=== PATIENT | male | born 1995 | race African-American/Black ===

== ENCOUNTER 2017-10-28 16:44 | Emergency (ER) | payer BC ==
[2017-10-28 17:57] VITALS: BP 120/67
--- NOTE | 2017-10-28 18:07 | UC ---
UC General HPI - HPI Summary HPI Summary: pt is c/o 3 separate episodes of some nausea with vomiting in the past weeks. notes stomach feels sharp with pain during the vomiting. no diarrhea. no black or bloody BM's and no diarrhea. denies hx IBD. admits to belching. has tried Tums and Peptobismal with no relief. currently feels ok. denies travel hx, sick contacts and antibiotic use. also denies marijuanna / alcohol use. - History of Current Complaint Chief Complaint: UCGI Stated Complaint: VOMITING Time Seen by Provider: 10/28/17 17:59 Hx Obtained From: Patient Pain Intensity: 0 Aggravating: food but only when stomach is already feeling upset Alleviating: nothing Associated Signs & Symptoms: Positive: Nausea, Vomiting. Negative: Diarrhea, Fever - Allergy/Home Medications Allergies/Adverse Reactions: Allergies Allergy/AdvReac Type Severity Reaction Status Date / Time No Known Allergies Allergy Verified 10/28/17 17:57 PMH/Surg Hx/FS Hx/Imm Hx Previously Healthy: Yes - Surgical History Surgical History: None - Family History Known Family History: Positive: None - Social History Occupation: Student Lives: Dormitory/Roommates Alcohol Use: None Substance Use Type: None Smoking Status (MU): Never Smoked Tobacco - Immunization History Vaccination Up to Date: Yes Review of Systems Constitutional: Negative Skin: Negative Eyes: Negative ENT: Negative Respiratory: Negative Cardiovascular: Negative Gastrointestinal: Vomiting, Nausea Genitourinary: Negative Motor: Negative Neurovascular: Negative Musculoskeletal: Negative Neurological: Negative Psychological: Negative Is Patient Immunocompromised?: No All Other Systems Reviewed And Are Negative: Yes Physical Exam Triage Information Reviewed: Yes Appearance: Well-Appearing Vital Signs: Initial Vital Signs Temp 99.3 F 10/28/17 17:52 Pulse 82 10/28/17 17:52 Resp 16 10/28/17 17:52 BP 120/67 10/28/17 17:52 Pulse Ox 100 10/28/17 17:52 Vital Signs Reviewed: Yes Eyes: Positive: Conjunctiva Clear ENT: Positive: Pharynx normal, TMs normal. Negative: Nasal congestion, Nasal drainage Neck: Positive: Supple, Nontender, No Lymphadenopathy Respiratory: Positive: Lungs clear, Normal breath sounds Cardiovascular: Positive: RRR, No Murmur Abdomen Description: Positive: Nontender, No Organomegaly, Soft. Negative: Bruit, CVA Tenderness (R), CVA Tenderness (L), Distended, Guarding Bowel Sounds: Positive: Present Musculoskeletal: Positive: ROM Intact Neurological: Positive: Alert Psychological: Positive: Age Appropriate Behavior Skin Exam: Normal Course/Dx - Course Course Of Treatment: no acute abdomen. symptom free now. will tx PPI, clear liquid diet with advance to bland along with close f/u. pt agrees to go to ER for any worsening. - Differential Dx - Multi-Symptom Provider Diagnoses: episodic nausea/vomiting Discharge - Sign-Out/Discharge Documenting (check all that apply): Discharge/Admit/Transfer - Discharge Plan Condition: Stable Disposition: HOME Prescriptions: Omeprazole CAP* [Prilosec CAP* 20 MG] 20 mg PO DAILY #14 cap. Patient Education Materials: Clear Liquid Diet (ED), Diet for Stomach Ulcers and Gastritis (ED), Acute Nausea and Vomiting (ED) Referrals: Non Staff,Doctor [Primary Care Provider] - Additional Instructions: FOLLOW UP [facility] IN 5 DAYS FOR A RECHECK. GO TO ER FOR ANY WORSENING. FOLLOW CLEAR LIQUID DIET X24 HOURS THEN ADVANCE TO BLAND DIET. - Billing Disposition and Condition Condition: STABLE Disposition: HOME
== END 2017-10-28 18:22 | disposition home or self-care (01) ==
LOC: UCCORT 16:44
DX: R11.2 Nausea with vomiting, unspecified (principal)
CPT/HCPCS: 99202; G0463